=== PATIENT | female | born 2000 | race Two or more races ===

== ENCOUNTER 2021-03-25 15:30 | Inpatient (IN) | payer OTHER ==
[~2021-03-25] VITALS: Ht 162.6 cm; Wt 63.5 kg
[2021-04-01] MEDS ORDERED: PRENATAL TABLE1 EAC1 PO (06:09)
== END 2021-04-03 14:44 | disposition home or self-care (01) | DRG 807 ==
LOC: LDR 04-01 05:18 → OB/GYN 04-01 16:10
PROVIDERS: ADMIT Obstetrics & Gynecology; ATTEND Obstetrics & Gynecology
PROC: 10E0XZZ Delivery of Products of Conception, External Approach (ICD-10-PCS; principal; 2021-04-01)
PROC: 10907ZC Drainage of Amniotic Fluid, Therapeutic from Products of Conception, Via Natural or Artificial Opening (ICD-10-PCS; 2021-04-01)
PROC: 4A1HXFZ Monitoring of Products of Conception, Cardiac Rhythm, External Approach (ICD-10-PCS; 2021-04-01)
DX: O80 Encounter for full-term uncomplicated delivery (principal); Z37.0 Single live birth; Z3A.39 39 weeks gestation of pregnancy; Z20.822 Contact with and (suspected) exposure to COVID-19

== ENCOUNTER 2021-11-08 02:14 | Emergency (ER) | payer OTHER ==
[~2021-11-08] VITALS: Ht 162.6 cm; Wt 59.4 kg
[~2021-11-08 02:14] MED LIST: PRENATAL TABLE1 EAC1 PO
[2021-11-08] MEDS ORDERED: MACRODANTIN100 M1 PO (03:57)
== END 2021-11-08 04:07 | disposition home or self-care (01) ==
LOC: ER 02:14
DX: O03.9 Complete or unspecified spontaneous abortion without complication (principal)